=== PATIENT | male | born 1945 | race Caucasian/White ===

== ENCOUNTER 2018-01-17 08:57 | Day surgery (SDC) | payer OTHER, MEDICARE ==
[2018-01-17] VITALS (8 sets, daily range): BP systolic 95–144; BP diastolic 52–88
[~2018-01-17] VITALS: Ht 185.4 cm; Wt 110.7 kg
[2018-01-17] MEDS ORDERED: diphenhydrAMINE 25mg capsule PO PRN (09:35)
[2018-01-17] MEDS ORDERED: sod bicarbonate 150mEq in D5W 1,150 ML IV ONE (09:35)
[2018-01-17] MEDS ORDERED: CARV-50 PO (09:49)
[2018-01-17] MEDS ORDERED: ASPI-1265 PO (09:49)
[2018-01-17] MEDS ORDERED: POTA10CA44 PO (09:49)
[2018-01-17] MEDS ORDERED: ATOR80TA PO (09:49)
[2018-01-17] MEDS ORDERED: FURO-150 PO (09:49)
[2018-01-17] MEDS ORDERED: RIVA20TA PO (09:49)
[2018-01-17] MEDS ORDERED: MULT1TAB74 PO (09:49)
[2018-01-17 10:16] LABS: BASOPHILS % (AUTO) 0.5 % (0-1); EOSINOPHILS # (AUTO) 0.3 X10'3 (0-0.9); EOSINOPHILS % (AUTO) 5.8 % (0-6); HEMATOCRIT 43.4 % (42.0-52.0); HEMOGLOBIN 14.4 g/dl (14.0-17.9); LYMPHOCYTES # (AUTO) 1.2 X10'3 (1.1-4.8); LYMPHOCYTES % (AUTO) 19.8 % (21-51); MEAN CORPUSCULAR HEMOGLOBIN 31.2 PG (27.0-31.0); MEAN CORPUSCULAR HGB CONC 33.2 % (33.0-36.5); MEAN CORPUSCULAR VOLUME 93.7 FL (78-98); MEAN PLATELET VOLUME 8.2 FL (7.4-10.4); MONOCYTES # (AUTO) 0.5 X10'3 (0-0.9); MONOCYTES % (AUTO) 8.2 % (2-12); NEUTROPHILS % (AUTO) 65.7 % (42-75); PLATELET COUNT 155 X10'3 (140-440); RED BLOOD COUNT 4.63 X10'6 (4.70-6.10); RED CELL DISTRIBUTION WIDTH 14.8 % (11.5-14.5); WHITE BLOOD COUNT 6.1 X10'3 (4.5-11.0)
[2018-01-17 10:26] LABS: ALBUMIN 3.8 G/DL (3.4-5.0); ANION GAP 8 (8-16); BLOOD UREA NITROGEN 22 MG/DL (7-18); BUN/CREATININE RATIO 29.7 (5.4-32.0); CALCIUM 9.2 MG/DL (8.5-10.1); CHLORIDE 104 MMOL/L (99-107); CREATININE 0.74 MG/DL (0.60-1.10); GLUCOSE 95 MG/DL (70-104); SODIUM 140 MMOL/L (135-145); TOTAL CARBON DIOXIDE 28.3 MMOL/L (24-32); eGFR > 90 ML/MIN
[2018-01-17 10:28] LABS: INR 1.1 INR; PROTHROMBIN TIME 11.2 SECONDS (9.0-12.0)
[2018-01-17] MEDS ORDERED: lidocaine 1%/epinephrine 1:100,000 injection 50ml vial ONE (11:18)
[2018-01-17] MEDS ORDERED: CEFAZOLIN IV ONE (11:18)
[2018-01-17] MEDS ORDERED: fentaNYL/PF 50MCG/1 ML 2ML syringe ONE (11:18)
[2018-01-17] MEDS ORDERED: midazolam 2 mg/2 ml injection ONE ×2 (11:18→12:01)
[2018-01-17] MEDS ORDERED: DEXTROSE IV ONE (11:18)
[2018-01-17] MEDS ORDERED: [UNRECOGNIZED DRUG - OTHER] IV ONE (11:18)
[2018-01-17] MEDS ORDERED: vancomycin 1,000mg inj ONE ×2 (11:20→11:23)
== END 2018-01-17 15:15 | disposition home or self-care (01) ==
LOC: SSTAY O 08:57
PROVIDERS: ATTEND Internal Medicine Cardiovascular Disease
DX: Z45.02 Encounter for adjustment and management of automatic implantable cardiac defibrillator (principal); I42.0 Dilated cardiomyopathy; I44.7 Left bundle-branch block, unspecified; I25.10 Atherosclerotic heart disease of native coronary artery without angina pectoris; I48.91 Unspecified atrial fibrillation; I47.2 Ventricular tachycardia; I11.0 Hypertensive heart disease with heart failure; I50.9 Heart failure, unspecified; E78.5 Hyperlipidemia, unspecified; M19.90 Unspecified osteoarthritis, unspecified site; Z72.89 Other problems related to lifestyle; Z86.74 Personal history of sudden cardiac arrest; Z87.891 Personal history of nicotine dependence; Z79.82 Long term (current) use of aspirin; Z90.49 Acquired absence of other specified parts of digestive tract; Z95.5 Presence of coronary angioplasty implant and graft; Z98.890 Other specified postprocedural states; Z79.899 Other long term (current) drug therapy; Z80.9 Family history of malignant neoplasm, unspecified; Z82.49 Family history of ischemic heart disease and other diseases of the circulatory system
CPT/HCPCS: 33264; 36415; 80048; 83735; 85025; 85610; 93005; 99152; 99153; C1882; J2250; J3010; J3370; J3490; Q0163; A4620; J0690

== ENCOUNTER 2021-07-14 07:57 | Day surgery (SDC) | payer MEDICARE ==
[~2021-07-14] VITALS: Ht 185.4 cm; Wt 126.5 kg
[2021-07-14] VITALS (7 sets, daily range): BP systolic 112–120; BP diastolic 60–73
[~2021-07-14 07:57] MED LIST: ASPI-1265 PO; ATOR80TA PO; CARV-50 PO; FURO-150 PO; MULT-620 PO; POTA10CA44 PO; RIVA20TA PO
[2021-07-14] MEDS ORDERED: CARV25TA2 PO (08:54)
[2021-07-14 08:55] LABS: BASOPHILS % (AUTO) 0.6 % (0-1); EOSINOPHILS # (AUTO) 0.2 X10'3 (0-0.9); EOSINOPHILS % (AUTO) 3.6 % (0-6); HEMATOCRIT 39.2 % (42.0-52.0); HEMOGLOBIN 13.2 g/dl (14.0-17.9); LYMPHOCYTES # (AUTO) 1.3 X10'3 (1.1-4.8); LYMPHOCYTES % (AUTO) 23.2 % (21-51); MEAN CORPUSCULAR HEMOGLOBIN 31.1 PG (27.0-31.0); MEAN CORPUSCULAR HGB CONC 33.7 g/dL (33.0-36.5); MEAN CORPUSCULAR VOLUME 92.1 FL (78-98); MEAN PLATELET VOLUME 7.3 FL (7.4-10.4); MONOCYTES # (AUTO) 0.7 X10'3 (0-0.9); MONOCYTES % (AUTO) 11.6 % (2-12); NEUTROPHILS # (AUTO) 3.5 X10'3 (1.8-7.7); PLATELET COUNT 176 X10'3 (140-440); RED BLOOD COUNT 4.25 X10'6 (4.70-6.10); RED CELL DISTRIBUTION WIDTH 15.1 % (11.5-14.5); WHITE BLOOD COUNT 5.7 X10'3 (4.5-11.0)
[2021-07-14] MEDS ORDERED: WARF10TA45 PO (09:00)
[2021-07-14] MEDS ORDERED: vitamin d3 PO (09:00)
[2021-07-14] MEDS ORDERED: LAN0.125T PO (09:00)
[2021-07-14] MEDS ORDERED: WARF7.5T48 PO (09:00)
[2021-07-14] MEDS ORDERED: midazolam 1 mg/ML 2ml injection ONE ×3 (10:10→11:52)
[2021-07-14] MEDS ORDERED: LIDOCAINE 2% w/EPI 1:100:000 30mL injection MDV**cath lab 1 only ONE (10:11)
[2021-07-14] MEDS ORDERED: vancomycin 1,000mg inj ONE (10:11)
[2021-07-14] MEDS ORDERED: fentaNYL/PF 50MCG/1 ML 2ML syringe ONE (10:11)
[2021-07-14] MEDS ORDERED: iohexol 350 MG/ML 50ML vial IV ONE (10:11)
[2021-07-14 10:24] LABS: ALBUMIN 3.8 G/DL (3.4-5.0); ANION GAP 9 (8-16); BLOOD UREA NITROGEN 19 MG/DL (7-18); BUN/CREATININE RATIO 23.5 (5.4-32.0); CALCIUM 9.1 MG/DL (8.5-10.1); CHLORIDE 105 MMOL/L (99-107); CREATININE 0.81 MG/DL (0.60-1.10); GLUCOSE 125 MG/DL (70-104); POTASSIUM 4.5 MMOL/L (3.5-5.1); SODIUM 140 MMOL/L (135-145); TOTAL CARBON DIOXIDE 25.9 MMOL/L (24-32); eGFR > 90 ML/MIN
[2021-07-14] MEDS ORDERED: linezolid 600mg/300ml PREMIX 300 ML IV ONE (10:50)
[2021-07-14] MEDS ORDERED: normal saline 1000ml 1,000 ML IV SCH (12:45)
[2021-07-14] MEDS ORDERED: HYDROcodone/acetaminophen 10/325mg tab PO PRN (12:45)
[2021-07-14] MEDS ORDERED: HYDROcodone/acetaminophen 5mg/325mg tablet PO PRN (12:45)
== END 2021-07-14 14:35 | disposition home or self-care (01) ==
LOC: SSTAY O 07:57
PROVIDERS: ATTEND Internal Medicine Cardiovascular Disease
DX: Z45.02 Encounter for adjustment and management of automatic implantable cardiac defibrillator (principal); I42.0 Dilated cardiomyopathy; I48.20 Chronic atrial fibrillation, unspecified; I44.7 Left bundle-branch block, unspecified; Z79.01 Long term (current) use of anticoagulants; Z79.899 Other long term (current) drug therapy; Z98.890 Other specified postprocedural states; Z96.652 Presence of left artificial knee joint; Z87.891 Personal history of nicotine dependence; Z72.89 Other problems related to lifestyle; Z88.0 Allergy status to penicillin; Z88.1 Allergy status to other antibiotic agents
CPT/HCPCS: 33264; 36415; 80048; 83735; 85025; 85610; 93005; 99152; 99153; C1882; C1894; J2250; J3010; J3370; J3490; A4620; A6258; Q9967

== ENCOUNTER 2021-12-13 16:47 | Emergency (ER) | payer MEDICARE ==
[~2021-12-13] VITALS: Ht 185.4 cm; Wt 125.0 kg
[~2021-12-13 16:47] MED LIST changes: -CARV-50 PO; +CARV25TA2 PO; +LAN0.125T PO; -RIVA20TA PO; +WARF10TA45 PO; +WARF7.5T48 PO; +vitamin d3 PO
[2021-12-13 18:03] LABS: BASOPHILS % (AUTO) 0.1 % (0-1); EOSINOPHILS % (AUTO) 0 % (0-6); HEMATOCRIT 38.8 % (42.0-52.0); LYMPHOCYTES # (AUTO) 0.8 X10'3 (1.1-4.8); LYMPHOCYTES % (AUTO) 4.9 % (21-51); MEAN CORPUSCULAR HEMOGLOBIN 31.4 PG (27.0-31.0); MEAN CORPUSCULAR HGB CONC 33.6 g/dL (33.0-36.5); MEAN CORPUSCULAR VOLUME 93.4 FL (78-98); MEAN PLATELET VOLUME 7.9 FL (7.4-10.4); MONOCYTES # (AUTO) 1.7 X10'3 (0-0.9); MONOCYTES % (AUTO) 10.7 % (2-12); NEUTROPHILS # (AUTO) 13.2 X10'3 (1.8-7.7); NEUTROPHILS % (AUTO) 84.3 % (42-75); PLATELET COUNT 159 X10'3 (140-440); RED BLOOD COUNT 4.15 X10'6 (4.70-6.10); RED CELL DISTRIBUTION WIDTH 16.2 % (11.5-14.5); WHITE BLOOD COUNT 15.7 X10'3 (4.5-11.0)
[2021-12-13] MEDS ORDERED: HYDROcodone/acetaminophen 10/325mg tab PO ONE (18:10)
[2021-12-13 18:16] LABS: ALANINE AMINOTRANSFERASE 31 U/L (12-78); ALBUMIN 3.8 G/DL (3.4-5.0); ALKALINE PHOSPHATASE 87 IU/L (46-116); ANION GAP 8 (8-16); ASPARTATE AMINO TRANSFERASE 26 U/L (10-37); BILIRUBIN,TOTAL 3.1 MG/DL (0.1-1.0); BLOOD UREA NITROGEN 20 MG/DL (7-18); BUN/CREATININE RATIO 17.9 (5.4-32.0); CALCIUM 8.9 MG/DL (8.5-10.1); CHLORIDE 101 MMOL/L (99-107); CREATININE 1.12 MG/DL (0.60-1.10); GLUCOSE 123 MG/DL (70-104); POTASSIUM 4.2 MMOL/L (3.5-5.1); SODIUM 136 MMOL/L (135-145); TOTAL CARBON DIOXIDE 27.3 MMOL/L (24-32); TOTAL PROTEIN 7.6 G/DL (6.4-8.2); eGFR 64 ML/MIN
[2021-12-13] MEDS ORDERED: acetaminophen 325mg tablet PO ONE (18:30)
[2021-12-13 19:41] LABS: URINE AMPHETAMINE SCREEN NEGATIVE (Neg); URINE BARBITUATE SCREEN NEGATIVE (Neg); URINE BENZODIAZEPINES SCREEN NEGATIVE (Neg); URINE CANNABINOID SCREEN NEGATIVE (Neg); URINE COCAINE SCREEN NEGATIVE (Neg); URINE METHADONE SCREEN NEGATIVE (Neg); URINE OPIATE SCREEN NEGATIVE (Neg); URINE PHENCYCLIDINE SCREEN NEGATIVE (Neg)
[2021-12-13 20:42] VITALS: BP 155/86
[2021-12-14 05:10] LABS: CLARITY,URINE CLEAR (Clear); GLUCOSE, URINE NEGATIVE (Neg); KETONES,URINE NEGATIVE (Neg); LEUKOCYTE ESTERASE ,URINE NEGATIVE (Neg); NITRITES, URINE NEGATIVE (Neg); OCCULT BLOOD,URINE TRACE-INTACT (Neg); PROTEIN,URINE NEGATIVE (Neg); UROBILINOGEN,URINE 0.2 E.U/dL (0.2-1.0)
[2021-12-14 05:15] LABS: COLOR,URINE STRAW (Yellow); UA COLLECTION TYPE URINAL
[2021-12-14 05:21] LABS: SQUAMOUS EPITHELIAL CELL,UR FEW /LPF (FEW)
[2021-12-14 05:22] LABS: BACTERIA,URINE NONE SEEN /HPF (Neg); RBC,URINE 0-2 /HPF (0-2); WBC,URINE NONE SEEN /HPF (0-4)
[2021-12-14] MEDS ORDERED: furosemide 40mg/4ml inj IV ONE (16:20)
[2021-12-14] MEDS ORDERED: VITD400T PO (17:35)
[2021-12-14] MEDS ORDERED: POTA-207 PO (17:35)
[2021-12-14] MEDS ORDERED: furosemide 10 MG/1 ML 10ml inj IV SCH (20:00)
== END 2021-12-13 21:37 | disposition home or self-care (01) ==
LOC: ER 16:48
DX: R50.9 Fever, unspecified (principal); M25.511 Pain in right shoulder; Z88.0 Allergy status to penicillin; Z88.1 Allergy status to other antibiotic agents; Z79.899 Other long term (current) drug therapy; Z79.82 Long term (current) use of aspirin
CPT/HCPCS: 36415; 70450; 71045; 73030; 80053; 80305; 81001; 83605; 84145; 84484; 85025; 85610; 87040; 87077; 87186; A4565

== ENCOUNTER 2024-08-24 05:19 | Emergency (ER) | payer MEDICARE ==
[~2024-08-24] VITALS: Ht 185.4 cm; Wt 117.2 kg
[~2024-08-24 05:19] MED LIST changes: +AMI200T PO; +ATOR-429 PO; -ATOR80TA PO; +POTA-207 PO; -POTA10CA44 PO; +VITD400T PO; -vitamin d3 PO
--- NOTE | 2024-08-24 05:32 | ELECTROCARDIOGRAPH REPORT ---
[facility] Test Date: 2024-08-24 Test Time: 05:30:21 Pat Name: VIJAYA CORDOVA Department: [facility]-ER Patient ID: [facility]-[id number] Room: Gender: M Customer Contact Specialist: JOSE ANTONIO : 1945 Requested By: CHAVA HAY Order Number: [id number] Reading MD: Measurements Intervals Alba Rate: 71 P: 82 MI: 209 QRS: -68 QRSD: 159 T: 80 QT: 443 QTc: 482 Interpretive Statements Ventricular-paced rhythm No further analysis attempted due to paced rhythm Please click the below link to view image of tracing.
--- NOTE | 2024-08-24 06:06 | RADIOLOGY REPORT ---
EXAM: XR Chest, 1 View CLINICAL INDICATION: Pain TECHNIQUE: Frontal view of the chest. COMPARISON: No relevant prior studies available. FINDINGS: LUNGS AND PLEURAL SPACES: See below. HEART: Cardiomegaly with mild congestion. MEDIASTINUM: Unremarkable. Normal mediastinal contour. BONES/JOINTS: Unremarkable. No acute fracture. TUBES, LINES AND DEVICES: Right-sided cardiac pacemaker. IMPRESSION: Cardiomegaly with mild congestion.
[2024-08-24 06:24] LABS: BASOPHILS % (AUTO) 0.6 % (0-1); EOSINOPHILS # (AUTO) 0.2 X10'3 (0-0.9); EOSINOPHILS % (AUTO) 3.5 % (0-6); HEMATOCRIT 42.2 % (42.0-52.0); HEMOGLOBIN 14.5 g/dl (14.0-17.9); LYMPHOCYTES # (AUTO) 1.4 X10'3 (1.1-4.8); MEAN CORPUSCULAR HEMOGLOBIN 31.7 PG (27.0-31.0); MEAN CORPUSCULAR HGB CONC 34.4 g/dL (33.0-36.5); MEAN CORPUSCULAR VOLUME 92.2 FL (78-98); MEAN PLATELET VOLUME 8.3 FL (7.4-10.4); MONOCYTES # (AUTO) 0.5 X10'3 (0-0.9); MONOCYTES % (AUTO) 8.8 % (2-12); NEUTROPHILS # (AUTO) 4.1 X10'3 (1.8-7.7); NEUTROPHILS % (AUTO) 65.1 % (42-75); PLATELET COUNT 191 X10'3 (140-440); RED BLOOD COUNT 4.58 X10'6 (4.70-6.10); RED CELL DISTRIBUTION WIDTH 15.6 % (11.5-14.5); WHITE BLOOD COUNT 6.2 X10'3 (4.5-11.0)
--- NOTE | 2024-08-24 06:26 | Physician Documentation ---
History of Present Illness General Chief Complaint: Shortness of Breath Stated Complaint: BREATHING DIFFICULTIES Time Seen by MD: 06:24 Mode of Arrival: POV History of Present Illness Initial Comments The patient is a 79-year-old male with a history of CAD status post stent, CHF, AICD, ppm, AFib who uses BiPAP at night for years and woke up last night several times unable to keep up with his machine. He has noted increased swelling in his ankles recently and trouble breathing while lying flat with improvement when he sits up. He has been on his usual dose of Lasix 20 mg q.a.m.. Medication Reconciliation Allergies: Coded Allergies: Penicillins (Unverified Allergy, Unknown, pcn skin test negative; tolerates cephalosporins, 04/06/24) clindamycin (Verified Allergy, Unknown, 04/06/24) Scheduled Amiodarone Hcl (Cordarone), 200 MG PO BID Aspirin (Aspirin), 1 TAB.CHEW PO QAM, (Reported) Atorvastatin Calcium* (Lipitor*), 1 TABLET PO HS, (Reported) Carvedilol (Carvedilol), TAB PO BID, (Reported) Cholecalciferol (Vitamin D3) (Vitamin D), 2,000 UNITS PO QAM, (Reported) Digoxin (Digitek), 2 TAB PO DAILY, (Reported) Furosemide* (Lasix*), 1 TAB PO QAM Multivitamins (Multivitamins), 1 TAB PO DAILY, (Reported) Potassium Chloride* (K-Dur*), 1 TAB PO DAILY Warfarin Sodium (Warfarin Sodium), 1 TAB PO SATURDAY, (Reported) Warfarin Sodium (Warfarin Sodium), 1 TAB PO SATURDAY-SATURDAY HS, (Reported) Past Medical History Past Medical History: Atrial Fibrillation Past Surgical History: pacemaker Drug Use: none Lives with: Family Lives In: Home Occupation: retired Review of Systems ROS Constitutional: Denies chills, fatigue, fever, weight gain or weight loss. HEENT: Denies hearing loss, sinus pressure or visual changes. Respiratory: More orthopneic Cardiovascular: Denies chest pain, pain while walking (claudication), edema or palpitations. Gastrointestinal: Denies abdominal pain, blood in stool, constipation, diarrhea, heartburn, loss of appetite, nausea or vomiting. Genitourinary: Denies painful urination (dysuria), excessive amount of urine (polyuria) or urinary frequency. Metabolic/Endocrine: Denies cold intolerance, heat intolerance, excessive thirst (polydipsia) or excessive hunger (polyphagia). Neurological: Denies dizziness, extremity numbness, extremity weakness, headaches, seizures or tremors. Psychiatric: Denies anxiety or depression. Integumentary: Denies breast discharge, breast lump, hives, mole change(s), rash or skin lesion. Musculoskeletal: Denies back pain, joint pain, joint swelling or neck pain. Hematologic: Denies easily bleeding, easily bruises, lymphedema or issues with blood clots. Immunologic: Denies food allergies or seasonal allergies. Physical Exam Physical Exam Vital Signs: Temperature: 97.7, Source: Oral, Heart Rate: 70, Respiratory Rate: 11, BP: 167/92, Pulse Oximetry: 96, Weight: 117.200 Oxygen Flow Rate: 0 Physical Exam Physical Exam Vitals and nursing note reviewed. Constitutional: General: Patient is awake, alert, oriented x 4 in no acute distress and well appearing. Speech is clear and lucid. Appearance: Normal appearance. Patient is not ill-appearing, toxic-appearing or diaphoretic. HENT: Head: Normocephalic and atraumatic. Mouth/Throat: Mouth: Mucous membranes are moist. Pharynx: Oropharynx is clear. Eyes: General: No scleral icterus. Extraocular Movements: Extraocular movements intact. Pupils: Pupils are equal, round, and reactive to light. Cardiovascular: Rate and Rhythm: Normal rate and regular rhythm. Heart sounds: No murmur heard. Worsening lower extremity edema from baseline according to patient Pulmonary: Effort: No respiratory distress. Breath sounds: No wheezing, rhonchi or rales. Abdominal: General: There is no distension. Palpations: There is no fluid wave, hepatomegaly or mass. Tenderness: There is no abdominal tenderness. There is no guarding. Musculoskeletal: General: No swelling or deformity. Skin: Coloration: Skin is not jaundiced. Findings: No erythema or rash. Neurological: Mental Status: Patient is alert. Progress Results/Orders Results/Orders Completed Orders - BETI HERRON MD Furosemide Inj (Lasix Inj) (08/24/24 06:35) Medications Received in ER Medications (Trade) Dose Ordered Sig/Federico Route PRN Reason Start Time Stop Time Status Last Admin Dose Admin (Lasix inj) 40 mg ONCE ONCE IV 08/24/24 06:35 08/24/24 06:36 DC 08/24/24 07:19 40 MG Vital Signs 08/24/24 08/24/24 08/24/24 08/24/24 05:26 05:35 05:36 07:36 Temp 97.7 97.7 Pulse 74 70 75 Resp 16 10 11 12 B/P (MAP) 167/92 167/92 (117) 162/94 (116) Pulse Ox 95 96 94 O2 Flow Rate 0 0 08/24/24 08:40 Pulse Ox 97 O2 Delivery Room Air* O2 Flow Rate 0 FiO2 N/A Laboratory Tests Test 08/24/24 05:00 08/24/24 07:25 White Blood Count 6.2 Red Blood Count 4.58 L Hemoglobin 14.5 Hematocrit 42.2 Mean Corpuscular Volume 92.2 Mean Corpuscular Hemoglobin 31.7 H Mean Corpuscular Hemoglobin Concent 34.4 Red Cell Distribution Width 15.6 H Platelet Count 191 Mean Platelet Volume 8.3 Neutrophils (%) (Auto) 65.1 Lymphocytes (%) (Auto) 22.0 Monocytes (%) (Auto) 8.8 Eosinophils (%) (Auto) 3.5 Basophils (%) (Auto) 0.6 Neutrophils # (Auto) 4.1 Lymphocytes # (Auto) 1.4 Monocytes # (Auto) 0.5 Eosinophils # (Auto) 0.2 Basophils # (Auto) 0.0 CBC Comment Sodium Level 141 Potassium Level 4.0 Chloride Level 105 Carbon Dioxide Level 27.3 Anion Gap 9 Blood Urea Nitrogen 23 H Creatinine 1.16 H Estimated GFR/1.73 m2 61 BUN/Creatinine Ratio 19.8 Glucose Level 114 H Calcium Level 8.7 Total Bilirubin 1.2 H Aspartate Amino Transf (AST/SGOT) 32 Alanine Aminotransferase (ALT/SGPT) 42 Alkaline Phosphatase 92 Troponin I High Sensitivity 12 14 Pro-B-Type Natriuretic Peptide 499 H Total Protein 7.1 Albumin 3.7 Globulin 3.4 Albumin/Globulin Ratio 1.1 Chemistry Comments Troponin I High Sens Percent Delta 16 Troponin I Hi Sens Absolute Change 2 Medical Decision Making Findings This 79-year-old man woke up short of breath a few times last night. He has worsening orthopnea, worsening pedal edema and noticeable pulmonary congestion on chest x-ray. I am giving him Lasix 40 mg IV here. 08/24/2024, 8:27 a.m.: The patient has had a brisk diuresis after the intravenous Lasix. I am going to have him double his dose of Lasix over the next few days and follow up with his destination specialist, Dr. Rosen. Departure Disposition: HOME / SELF CARE / HOMELESS Impression: Primary Impression: Acute exacerbation of CHF (congestive heart failure) Condition: Stable Additional Instructions: Please double your furosemide dose for the next few days and call Dr. Rosen for (urgent) follow-up. In the meantime, return here for worsening symptoms or new/unusual symptoms. Referrals: NO PRIMARY CARE PROVIDER (PCP) Signature Scribe Signature: . Attestation: . BETI HERRON MD Aug 24, 2024 06:26
[2024-08-24 06:34] LABS: ALANINE AMINOTRANSFERASE 42 U/L (12-78); ALBUMIN 3.7 G/DL (3.4-5.0); ALBUMIN/GLOBULIN RATIO 1.1 (1.1-1.5); ALKALINE PHOSPHATASE 92 IU/L (46-116); ANION GAP 9 (8-16); ASPARTATE AMINO TRANSFERASE 32 U/L (10-37); BILIRUBIN,TOTAL 1.2 MG/DL (0.1-1.0); BLOOD UREA NITROGEN 23 MG/DL (7-18); BUN/CREATININE RATIO 19.8 (10.0-20.0); CALCIUM 8.7 MG/DL (8.5-10.1); CHLORIDE 105 MMOL/L (99-107); CREATININE 1.16 MG/DL (0.60-1.10); GLUCOSE 114 MG/DL (70-104); SODIUM 141 MMOL/L (135-145); TOTAL CARBON DIOXIDE 27.3 MMOL/L (24-32); TOTAL PROTEIN 7.1 G/DL (6.4-8.2); eCRCL 59 ML/MIN; eGFR 61 ML/MIN
[2024-08-24 06:40] LABS: PRO BRAIN NATRIURETIC PEPTIDE 499 PG/ML (0-450)
[2024-08-24] MEDS ORDERED: CYCL-1 PO (06:59)
[2024-08-24] MEDS ORDERED: METH4TAB81 PO (06:59)
[2024-08-24] MEDS: furosemide 10 MG/1 ML 10ml inj IV ONE (07:19)
[2024-08-24 09:47] VITALS: BP 160/97; PULSE 76; RESP 18; TEMP 97.7; O2SAT 95
== END 2024-08-24 09:51 | disposition home or self-care (01) ==
LOC: ER 05:20
DX: I50.9 Heart failure, unspecified (principal); I25.10 Atherosclerotic heart disease of native coronary artery without angina pectoris; I48.91 Unspecified atrial fibrillation; Z88.1 Allergy status to other antibiotic agents; Z88.6 Allergy status to analgesic agent; Z88.8 Allergy status to other drugs, medicaments and biological substances; Z95.5 Presence of coronary angioplasty implant and graft
CPT/HCPCS: 36415; 71045; 80053; 83880; 84484; 85025; 93005; 96374; 99285; J1938; Z7610